=== PATIENT | male | born 1990 | race Two or more races ===

== ENCOUNTER 2022-04-20 01:55 | Observation (INO) ==
[2022-04-20] MEDS ORDERED: Vancomycin 1,000 MG in NS 0.9% 250 ml 250 ML IVPB ONE (03:24)
[2022-04-20] MEDS ORDERED: Piperacillin/Tazobac ADVAN 3.375 GM in NS 0.9% 100 ml BAG 100 ML IV ONE (03:24)
[2022-04-20 04:11] LABS: ABS Eosinophils 0.1 10^3/ul (0-0.6); ABS Lymphocytes 1.2 10^3/ul (1.0-4.8); ABS Monocytes 0.6 10^3/ul (0-0.8); ABS Neutrophils 2.4 10^3/ul (1.5-7.7); Eosinophil % 3.3 %; Hematocrit 42 % (42-52); Hemoglobin 14.5 g/dL (14.0-18.0); Lymphocyte % 27.7 %; Mean Corpuscular HGB Conc 35 g/dL (31-36); Mean Corpuscular Hemoglobin 30 pg (27-31); Mean Corpuscular Volume 86 fL (80-94); Mean Platelet Volume 7.5 fL (7.4-10.4); Nucleated Red Blood Cells % 0.4; Platelet Count 128 10^3/uL (150-450); Red Blood Count 4.83 10^6 /uL (4.18-5.48); Red Cell Distribution Width 12 % (10-15); White Blood Count 4.4 10^3/uL (3.5-10.8)
[2022-04-20] MEDS ORDERED: Vancomycin 2,000 MG in NS 0.9% 500 ml BAG 500 ML IVPB ONE (04:14)
[2022-04-20 04:31] LABS: Albumin 4.4 g/dL (3.2-5.2); Albumin/Globulin Ratio 1.6 (1-3); C Reactive Protein 59.86 mg/L (<8.01); Calcium 9.5 mg/dL (8.6-10.3); Globulin 2.7 g/dL (2-4); Potassium 3.9 mmol/L (3.5-5.0); Total Bilirubin 0.8 mg/dL (0.2-1.0); Total Protein 7.1 g/dL (6.4-8.9); eGFR CKD-EPI 76.7 (>60)
[2022-04-20] MEDS ORDERED: Iohexol 350 (CONTRAST) 500 ML MDV IV ONE (05:09)
[2022-04-20] MEDS ORDERED: Ondansetron 4 mg VIAL 2 MG/ML 2 ml VIAL IV PRN (10:15)
[2022-04-20] MEDS ORDERED: TAZOBACTAM IV ONE (10:30)
[2022-04-20] MEDS ORDERED: [UNRECOGNIZED DRUG - OTHER] IV ONE (10:30)
[2022-04-20] MEDS ORDERED: PIPERACILLIN IV ONE (10:30)
[2022-04-20] MEDS ORDERED: Vancomycin per Pharmacy 1 EA NOTE FOLLOW UP SCH (11:00)
[2022-04-20] MEDS ORDERED: Zosyn per Pharmacy NOTE FOLLOW UP SCH (11:00)
[2022-04-20] MEDS ORDERED: Vancomycin 1000 MG in NS 0.9% 250 ML IVPB SCH (12:00)
[2022-04-20] MEDS: ZOSYN 3.375 GM Q8H per EXTENDED INFUSION IV SCH (19:56)
[2022-04-21 03:43] VITALS: BP 106/70
[2022-04-21] MEDS: ZOSYN 3.375 GM Q8H per EXTENDED INFUSION IV SCH (04:22)
[2022-04-21 05:36] LABS: ABS Eosinophils 0.4 10^3/ul (0-0.6); ABS Lymphocytes 1.7 10^3/ul (1.0-4.8); ABS Monocytes 0.6 10^3/ul (0-0.8); Eosinophil % 7.8 %; Hematocrit 39 % (42-52); Hemoglobin 13.8 g/dL (14.0-18.0); Lymphocyte % 35.7 %; Mean Corpuscular HGB Conc 36 g/dL (31-36); Mean Corpuscular Hemoglobin 30 pg (27-31); Mean Corpuscular Volume 86 fL (80-94); Mean Platelet Volume 7.3 fL (7.4-10.4); Nucleated Red Blood Cells % 0.2; Platelet Count 131 10^3/uL (150-450); Red Blood Count 4.56 10^6 /uL (4.18-5.48); Red Cell Distribution Width 13 % (10-15); White Blood Count 4.7 10^3/uL (3.5-10.8)
[2022-04-21 06:12] LABS: Potassium 4.2 mmol/L (3.5-5.0); eGFR CKD-EPI 86.4 (>60)
[2022-04-21] MEDS ORDERED: Vancomycin Trough Check NOTE FOLLOW UP ONE (11:30)
== END 2022-04-21 11:15 | disposition home or self-care (01) ==
LOC: ED 01:55 → SSU 03:00 → EDHOLD 10:33 → INTOOBSV 10:33 → SSU 12:17
PROVIDERS: ADMIT Internal Medicine; ATTEND Internal Medicine